=== PATIENT | female | born 1975 | race Caucasian/White ===

== ENCOUNTER 2016-09-09 18:52 | Emergency (ER) | payer SELFPAY ==
[~2016-09-09 18:52] MED LIST: ASA CHILDREN'S81 MG PO; FUROSEMIDE40 MG PO; GLIPIZIDE5 MG PO; GLUCOPHAGE1000 MG PO; KLOR-CON M2020 MEQ PO; LIPITOR DPS40 MG PO; LISINOPRIL10 MG PO; SPIRONOLACT50 MG PO; TYLENOL325 MG PO
--- NOTE | 2016-09-10 19:09 | ER ---
ADMIT: 09/09/2016 RM/LOC: ER [facility] MR#: [id number] [facility] [address], [place] [id number] [address] [place] [address] Emergency Room Report SEX: F AGE: 41 : 1975 DATE: 09/09/2016 HISTORY OF PRESENT ILLNESS: The patient is a 41-year-old female with a past medical history of diabetes, noncompliant, CHF, who came to the ER with chief complaint of intermittent numbness on the dorsum of bilateral feet and the patient states feeling like the feet goes to sleep for the last few days. The patient also complains of easy fatigability for the last few weeks. The patient is not taking her metformin regularly. PHYSICAL EXAMINATION: GENERAL: The patient in in no distress, lying in bed. VITAL SIGNS: Blood pressure is 159/66, with heart rate of 84, and O2 saturation is 93% on nasal cannula, and the patient was afebrile too. LUNGS: The patient states she has chronic baseline shortness of breath, which has not changed recently and the patient denies any chest pain. CHEST: Clear bilaterally with decreased breath sounds bilaterally, patient is obvious. ABDOMEN: Soft and distended, but nontender and no rebound. EXTREMITIES: Have very mild edema in bilateral ankles with normal peripheral pulses and no erythema or tenderness. Sensory is grossly normal bilaterally in all extremities. NEURO: Grossly normal. EKG did not show any ST or T changes. EMERGENCY ROOM COURSE: The patient had WBC of 6.6 with hemoglobin of 10.6, and platelet of 197,000. Sodium was 135 with potassium of 5.6, most probably due to the spironolactone. Glucose was 465, creatinine was 1.2, BNP was 349. Troponin I was also negative too. Considering the mild hyperkalemia and hyperglycemia, the patient received IV fluid bolus and Lasix IV. The patient is in no discomfort, was strictly advised to have strict blood sugar control and also be compliant with the medication. The patient was advised to follow up with the primary care doctor tomorrow. The patient agreed with the plan and acknowledged she understood and was discharged to home with; DIAGNOSES: 1. Medication noncompliance. 2. Hyperkalemia. 3. Hyperglycemia. 4. History of diabetes and congestive heart failure. Kenny Rodriguez MD/ anna JOB #: [id number] CC: Kenny Rodriguez MD, Attending Physician Bunny Pryor MD, Family Physician
[2016-12-29] MEDS ORDERED: GLUCOTROL DPS10 MG PO (16:56)
[2016-12-29] MEDS ORDERED: SPIRONOLACTONE50 MG PO (16:57)
[2016-12-29] MEDS ORDERED: GLUCOPHAGE1000 MG PO (16:57)
[2016-12-29] MEDS ORDERED: LASIX DPS40 MG PO (16:57)
[2016-12-29] MEDS ORDERED: MEVACOR40 MG PO (16:57)
[2016-12-29] MEDS ORDERED: CLARITIN DPS10 MG PO (16:58)
[2016-12-29] MEDS ORDERED: MYCOSTATIN PWD15 GM TP (16:58)
[2016-12-29] MEDS ORDERED: KLOR-CON M2020 ME1 PO (16:58)
[2016-12-29] MEDS ORDERED: ZESTRIL DPS20 MG PO (16:58)
[2016-12-29] MEDS ORDERED: LANTUS100 UNITS/ SQ (16:59)
== END 2016-09-09 22:38 | disposition home or self-care (01) ==
LOC: ER 18:52
DX: E11.65 Type 2 diabetes mellitus with hyperglycemia (principal); E87.5 Hyperkalemia; I50.9 Heart failure, unspecified; Z79.4 Long term (current) use of insulin; Z79.899 Other long term (current) drug therapy